=== PATIENT | male | born 1985 | race Two or more races ===

== ENCOUNTER 2017-02-01 23:34 | Emergency (ER) | payer OTHER ==
[~2017-02-01] VITALS: Ht 165.1 cm; Wt 54.4 kg
[2017-02-02 00:35] LABS: BASOPHILS % (AUTO) 0.9 % (0.0-2.0); LYMPHOCYTES % (AUTO) 30.7 % (20.0-45.0); MEAN CORPUSCULAR HEMOGLOBIN 32.6 PG (27.0-31.0); MEAN CORPUSCULAR HGB CONC 34.3 G/DL (32.0-36.0); MEAN CORPUSCULAR VOLUME 95 FL (80-99); MEAN PLATELET VOLUME 6.4 FL (6.5-10.1); MONOCYTES % (AUTO) 11.1 % (1.0-10.0); NEUTROPHILS % (AUTO) 55.3 % (45.0-75.0); PLATELET COUNT 252 K/UL (150-450); RED BLOOD COUNT 4.92 M/UL (4.70-6.10); RED CELL DISTRIBUTION WIDTH 11.6 % (11.6-14.8)
[2017-02-02 00:44] LABS: TROPONIN I < 0.30 ng/mL (<=0.30)
[2017-02-02 00:47] LABS: ALANINE AMINOTRANSFERASE 29 U/L (3-41); ALBUMIN/GLOBULIN RATIO 1.8 (1.0-2.7); ANION GAP 11 (5-15); ASPARTATE AMINO TRANSFERASE 23 U/L (5-40); CARBON DIOXIDE 27 mEQ/L (20-30); CHLORIDE 103 mEQ/L (98-107); CREATININE 1.1 mg/dL (0.7-1.2); GLOMERULAR FILTRATION RATE > 60 mL/min (>60); HEMOLYSIS 20; POTASSIUM 3.8 mEQ/L (3.4-4.9); SODIUM 141 mEQ/L (135-145); TOTAL PROTEIN 6.8 g/dL (6.6-8.7)
[2017-02-02 01:50] VITALS: BP 124/78
--- NOTE | 2017-02-02 01:51 | Emergency Room Report ---
History of Present Illness General Chief Complaint: Chest Pain Source: Patient Present Illness HPI Patient presents with left-sided chest pain that began this morning. He had an exceptional workout yesterday. The pain is somewhat pleuritic and also when he lays on that side it's worsened. He tried taking propranolol this morning. He takes propranolol for his nerves. The pain is somewhat better at this time. This morning was 9/10 and now it is down to 6/10. Denies any fever, cough, hemoptysis. The pain is radiating down his left arm somewhat. In addition to that he's complaining about some perceived redness around his ears and eyes. He denies any sore throat. The patient has no nausea vomiting diarrhea dysuria. Smokes. No other risk factors. He states that he gets redness sinus ears when he gets anxious also. Allergies: Coded Allergies: No Known Allergies (Unverified , 02/01/17) Patient History Past Medical History: see triage record Social History: Reports: smoking, Denies: alcohol use, drug use Social History Narrative works in office Reviewed Nursing Documentation: PMH: Agreed, PSxH: Agreed Nursing Documentation-PMH Past Medical History: No Stated History Review of Systems All Other Systems: negative except mentioned in HPI Physical Exam Vital Signs Date Time Temp Pulse Resp B/P Pulse Ox O2 Delivery O2 Flow Rate FiO2 02/01/17 23:44 98.2 56 16 115/68 98 Room Air Sp02 EP Interpretation: reviewed, normal General Appearance: well appearing, no apparent distress, GCS 15 Head: normocephalic Eyes: bilateral eye PERRL, bilateral eye normal inspection ENT: moist mucus membranes Neck: supple Respiratory: lungs clear, normal breath sounds, other - some chest wall tenderness to palpation Cardiovascular #1: regular rate, rhythm Cardiovascular #2: 2+ radial (R) Gastrointestinal: normal inspection, normal bowel sounds, non tender, no mass, non-distended Musculoskeletal: back normal, gait/station normal, normal range of motion Neurologic: alert, oriented x3, motor strength/tone normal, DTRs symmetric, sensory intact, cerebellar normal, normal gait, speech normal Psychiatric: anxious Skin: normal inspection, warm/dry, other - no erythema around ears or eyes Medical Decision Making Diagnostic Impression: Primary Impression: Chest pain Qualified Codes: R07.89 - Other chest pain Additional Impressions: Elevated CPK Stress urticaria ER Course The patient presents with left-sided chest pain. The only risk factor is smoking. It's more pleuritic and chest wall in nature. However the patient needs to have a cardiac workup excluding myocardial infarction and other cardiac causes. In addition a chest x-ray will be obtained to exclude pneumothorax or other pulmonary pathology. The patient be treated with Motrin. Aspirin is not indicated as his cardiac risk factors are low. EKG showed bradycardia most likely related to the fact he took propranolol. Chest x-ray was unremarkable. Other laboratory significant for normal troponin and normal white count. CPK was slightly elevated. The patient was improved still had some chest pain. Discussion with the patient about the erythema behind his ears and which seems more related to stress type urticaria. In addition to that we discussed his numbness in his hand. The patient was advised that he needed to have close followup as we started a workup today. The patient is stable for outpatient observation and treatment. Laboratory Tests Test 02/02/17 00:00 White Blood Count 6.0 K/UL (4.8-10.8) Red Blood Count 4.92 M/UL (4.70-6.10) Hemoglobin 16.0 G/DL (14.2-18.0) Hematocrit 46.7 % (42.0-52.0) Mean Corpuscular Volume 95 FL (80-99) Mean Corpuscular Hemoglobin 32.6 PG (27.0-31.0) H Mean Corpuscular Hemoglobin Concent 34.3 G/DL (32.0-36.0) Red Cell Distribution Width 11.6 % (11.6-14.8) Platelet Count 252 K/UL (150-450) Mean Platelet Volume 6.4 FL (6.5-10.1) L Neutrophils (%) (Auto) 55.3 % (45.0-75.0) Lymphocytes (%) (Auto) 30.7 % (20.0-45.0) Monocytes (%) (Auto) 11.1 % (1.0-10.0) H Eosinophils (%) (Auto) 2.0 % (0.0-3.0) Basophils (%) (Auto) 0.9 % (0.0-2.0) Sodium Level 141 mEQ/L (135-145) Potassium Level 3.8 mEQ/L (3.4-4.9) Chloride Level 103 mEQ/L (98-107) Carbon Dioxide Level 27 mEQ/L (20-30) Anion Gap 11 (5-15) Blood Urea Nitrogen 12 mg/dL (7-23) Creatinine 1.1 mg/dL (0.7-1.2) Estimate Glomerular Filtration Rate > 60 mL/min (>60) Glucose Level 94 mg/dL (74-106) Calcium Level 9.0 mg/dL (8.6-10.2) Total Bilirubin 0.4 mg/dL (0.0-1.2) Aspartate Amino Transferase (AST) 23 U/L (5-40) Alanine Aminotransferase (ALT) 29 U/L (3-41) Alkaline Phosphatase 47 U/L (40-129) Total Creatine Kinase 351 U/L (38-174) H Troponin I < 0.30 ng/mL (<=0.30) Total Protein 6.8 g/dL (6.6-8.7) Albumin 4.4 g/dL (3.5-5.2) Globulin 2.4 g/dL Albumin/Globulin Ratio 1.8 (1.0-2.7) EKG Diagnostic Results Rate: bradycardiac Rhythm: NSR ST Segments: no acute changes Rhythm Strip Diag. Results EP Interpretation: yes Rhythm: no PVC's, no ectopy, other - giana Chest X-Ray Diagnostic Results Chest X-Ray Diagnostic Results : Chest X-Ray Ordered: Yes # of Views/Limited/Complete: 1 View Indication: Chest Pain EP Interpretation: Yes Interpretation: no consolidation, no effusion, no pneumothorax, no acute cardiopulmonary disease Interpreting ER Provider: Electronically signed by Kev Barrera MD Last Vital Signs Date Time Temp Pulse Resp B/P Pulse Ox O2 Delivery O2 Flow Rate FiO2 02/02/17 03:00 58 16 128/74 100 Room Air 02/02/17 01:50 98.0 Status: improved Disposition: HOME, SELF-CARE Condition: Improved Scripts Tramadol Hcl* (ULTRAM*) 50 Mg Tablet 50 MG ORAL Q6H Y for For Pain, #6 TAB 0 Refills Prov: Kev Barrera M.D. 02/02/17 Ibuprofen* (MOTRIN*) 600 Mg Tablet 600 MG ORAL Q6H Y for For Pain, #16 TAB Prov: Kev Barrera M.D. 02/02/17 Kev Barrera M.D. Feb 02, 2017 01:51
[2017-02-02] MEDS ORDERED: TRAMADOL HCL50 MG ORAL (01:57)
[2017-02-02] MEDS ORDERED: IBUPROFEN600 MG ORAL (01:57)
[2017-02-02 03:00] VITALS: BP 128/74
--- NOTE | 2017-02-02 15:48 | Diagnostic Imaging Report ---
Indication: Chest pain Comparison: None A single view chest radiograph was obtained. Findings: Cardiomediastinal appearance is within normal limits for age. Pulmonary vascularity is appropriate. The diaphragmatic contour is smooth and costophrenic angles are sharp. No pleural effusions are identified. The bones are unremarkable. Impression: No acute findings
== END 2017-02-02 03:00 | disposition home or self-care (01) ==
LOC: EMR 23:59
DX: R07.89 Other chest pain (principal); R79.89 Other specified abnormal findings of blood chemistry; L50.8 Other urticaria
CPT/HCPCS: 36415; 71010; 80053; 82550; 84484; 85025; 93005; 99284